=== PATIENT | male | born 1985 | race Caucasian/White ===

== ENCOUNTER 2017-01-24 11:00 | Emergency (ER) | payer BC ==
[2017-01-24] MEDS ORDERED: BENADRYL 50 MG/ML IV ONE (11:26)
[2017-01-24] MEDS ORDERED: Hydromorphone 1 mg/ml Ampule IV ONE (11:26)
[2017-01-24] MEDS ORDERED: Sodium Chloride 0.9% 1000 ML 1,000 ML IV SCH (11:30)
[2017-01-24] MEDS ORDERED: Sodium Chloride 0.9% 1000 ML 1,000 ML ONE (11:32)
[2017-01-24] MEDS ORDERED: Hydromorphone 1 mg/ml Ampule ONE (11:32)
[2017-01-24] MEDS ORDERED: BENADRYL 50 MG/ML ONE (11:32)
--- NOTE | 2017-01-24 11:33 | ERPHSYRPT ---
- History of Present Illness Time Seen by Provider: 01/24/17 11:19 Source: patient, family (friend) Patient Subjective Stated Complaint: pt states he injured right ribs yesterday swimming. pt c/o pain to right ribs. Triage Nursing Assessment: pt pink, warm, dry. lung sounds clear and equal. no deformity noted. Physician History: CC: right rib injury Hx: 31 y/o patient from [place]. He works in a [employer]. Here for vacation. He was swimming last evening and wrestling and was hit in right anterior lower ribs with an elbow. He has rather severe pain in the right lower ribs. Not short of breath. Some upper abd pain. No neck or back pain. No LOC. No other injuries. Severity of Pain-Max: severe Severity of Pain-Current: severe Allergies/Adverse Reactions: acetaminophen [From Excedrin Tension Headache] Allergy (Verified 01/24/17 11:14) bee pollen Allergy (Verified 01/24/17 11:14) caffeine [From Excedrin Tension Headache] Allergy (Verified 01/24/17 11:14) Home Medications: Lisdexamfetamine Dimesylate [Vyvanse] 30 mg PO DAILY 01/24/17 [History] Hx Tetanus, Diphtheria Vaccination/Date Given: Yes (up to date) Hx Influenza Vaccination/Date Given: No Hx Pneumococcal Vaccination/Date Given: No Immunizations Up to Date: Yes - Review of Systems Constitutional: No Symptoms Eyes: No Symptoms Respiratory: No Dyspnea Cardiac: Chest Pain (right ribs) Abdominal/Gastrointestinal: Abdominal Pain (RUQ), No Nausea, No Vomiting Neurological: No Focal Weakness, No Parasthesia All Other Systems: Reviewed and Negative - Past Medical History Pertinent Past Medical History: No - Past Surgical History Past Surgical History: No - Social History Smoking Status: Current some day smoker Exposure to second hand smoke: Yes Drug Use: none 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) Physical Exam - Nursing Vital Signs Nursing Vital Signs: Initial Vital Signs Temperature 98.9 F Temperature Source Oral Pulse Rate 83 Respiratory Rate 16 Blood Pressure [Right Arm] 127/85 Pain Intensity 6 - Stanislav Coma Score Best Eye Response (Stanislav): (4) open spontaneously Best Verbal Response ([place]): (5) oriented Best Motor Response (Stanislav): (6) obeys commands Stanislav Total: 15 - Physical Exam General Appearance: alert Head Injury: no evidence of injury Eye Exam: bilateral eye: PERRL, EOMI Neck Exam: supple, No mid-line tenderness Respiratory/Chest Exam: chest tenderness (right anterior lower ribs, no crepitus , lung sounds intact) Cardiovascular Exam: normal heart sounds, regular rate/rhythm Gastrointestinal Exam: soft, tenderness (RUQ) Back Exam: normal inspection, No vertebral tenderness Extremity Exam: normal inspection, normal range of motion Neurologic Exam: alert, oriented x 3, cooperative, account administrator II-XII nml as tested, sensation nml, No motor deficits Skin Exam: warm, dry, other (sunburned) SpO2 Interpretation: normal SpO2: 98 Oxygen Delivery: Room Air Procedures - Limited Abd FAST Ultrasound Indications: abdominal pain (post injury to right ribs) Right Upper Quadrant Findings: No Free Fluid Left Upper Quadrant Findings: No Free Fluid Pelvis: no free fluid Progress: Limited abdominal ultrasound per ERMD for trauma. No free fluid. No pericardial fluid. Good lung sliding on right and left lungs with no sign of pneumothorax. - Course Nursing assessment & vital signs reviewed: Yes - Radiology Exams cxr X-ray Interpretation: Interpreted by me, No Fracture, No Pneumothorax Ordered Tests: Active Orders 24 hr Category Date Time Status IV Insertion STAT Care 01/24/17 11:26 Active NPO (ED) STAT Care 01/24/17 11:26 Active ABDOMEN AND PELVIS W CONTRAST [CT] Stat Exams 01/24/17 11:27 Taken CHEST 1 VIEW (PORTABLE) Stat Exams 01/24/17 11:27 Taken CBC W DIFF Stat Lab 01/24/17 11:36 Completed CMP Stat Lab 01/24/17 11:36 Completed Medication Summary Generic Name Dose Route Start Last Admin Trade Name Freq PRN Reason Stop Dose Admin Sodium Chloride 1,000 mls @ 100 mls/hr 01/24/17 11:30 01/24/17 11:34 Sodium Chloride 0.9% 1000 Ml IV 02/23/17 11:29 100 mls/hr .Q10H DIPTI Administration Discontinued Medications Generic Name Dose Route Start Last Admin Trade Name Freq PRN Reason Stop Dose Admin Diphenhydramine HCl 25 mg 01/24/17 11:26 01/24/17 11:35 Benadryl 50 Mg/Ml IV 01/24/17 11:27 25 mg STAT ONE Administration Diphenhydramine HCl Confirm 01/24/17 11:32 Benadryl 50 Mg/Ml Administered 01/24/17 11:33 Dose 50 mg .ROUTE .STK-MED ONE Hydromorphone HCl 1 mg 01/24/17 11:26 01/24/17 11:36 Hydromorphone 1 Mg/Ml Ampule IV 01/24/17 11:27 1 mg STAT ONE Administration Hydromorphone HCl Confirm 01/24/17 11:32 Hydromorphone 1 Mg/Ml Ampule Administered 01/24/17 11:33 Dose 1 mg .ROUTE .STK-MED ONE Ketorolac Tromethamine 30 mg 01/24/17 12:59 01/24/17 13:03 Toradol 30 Mg Injection IV 01/24/17 13:00 30 mg STAT ONE Administration Ketorolac Tromethamine Confirm 01/24/17 13:03 Toradol 30 Mg Injection Administered 01/24/17 13:04 Dose 30 mg .ROUTE .STK-MED ONE Lab/Rad Data: Laboratory Result Diagrams 01/24/17 11:36 01/24/17 11:36 Laboratory Results 01/24/17 01/24/17 Range/Units 11:36 11:36 WBC 6.6 (4.0-10.5) K/mm3 RBC 4.75 (4.1-5.6) M/mm3 Hgb 15.4 (12.5-18.0) gm/dl Hct 44.4 (42-50) % MCV 93.5 (78-100) fl MCH 32.4 H (26-32) pg MCHC 34.7 (32-36) g/dl RDW 12.6 (11.5-14.0) % Plt Count 208 (150-450) K/mm3 MPV 9.1 (6-9.5) fl Gran % 67.3 H (36.0-66.0) % Lymphocytes % 19.8 L (24.0-44.0) % Monocytes % 11.8 (0.0-12.0) % Eosinophils % 0.8 (0.00-5.0) % Basophils % 0.3 (0.0-0.4) % Basophils # 0.02 (0-0.4) Sodium 140 (136-145) mEq/L Potassium 3.9 (3.5-5.1) mEq/L Chloride 100 (98-107) mEq/L Carbon Dioxide 26.7 (21-32) mEq/L Anion Gap 17.1 H (5-15) MEQ/L BUN 12 (9-20) mg/dL Creatinine 0.94 (0.55-1.30) mg/dl Estimated GFR > 60 ML/MIN Glucose 133 H (70-110) MG/DL Calcium 9.8 (8.5-10.1) mg/dL Total Bilirubin 1.00 (0.2-1.0) mg/dL AST 24 (15-37) U/L ALT 24 (12-78) U/L Alkaline Phosphatase 77 (46-116) U/L Serum Total Protein 7.9 (6.4-8.2) gm/dL Albumin 4.3 (3.4-5.0) g/dL - Progress Progress Note: 01/24/17 13:08 CT abd/pelvis: john 12:59 PM 01/24/2017: No comps. 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 Remaining abd/pel negative. Pt states he is prior aware of spondylolithesis. Advised back specialist follow up and talked about risks of slippage. He will be treated for rib contusion. Instr given. 01/24/17 13:11 Pt states allergic to exedrin, able to take tylenol or norco. Counseled pt/family regarding: lab results, diagnosis, need for follow-up, rad results - Departure Time of Disposition: 13:09 Departure Disposition: Home Clinical Impression: Contusion of rib on right side Qualifiers: Encounter type: initial encounter Qualified Code(s): S20.211A - Contusion of right front wall of thorax, initial encounter Condition: Stable Critical Care Time: No Referrals: Provider,Unknown [Primary Care Provider] - Instructions: Rib Contusion, Rib Fracture Additional Instructions: No driving today or while taking noroc. Rx norco. Rx motrin. Ice packs off and on. Return for difficulty breathing, abdominal pain, passing blood or concerns. Prescriptions: Hydrocodone Bit/Acetaminophen [[place] 5-325 Tablet] 1 each PO Q6H PRN PRN #15 tablet PRN Reason: Pain Ibuprofen 600 mg PO Q6H PRN PRN #24 tablet PRN Reason: Pain
[2017-01-24 11:45] LABS: BASOPHIL % 0.3 % (0.0-0.4); Eosinophil % 0.8 % (0.00-5.0); Granulocytes % 67.3 % (36.0-66.0); Lymphocytes % 19.8 % (24.0-44.0); Mean Cell Volume 93.5 fl (78-100); Mean Corpuscular Hemoglobin 32.4 pg (26-32); Mean Platelet Volume 9.1 fl (6-9.5); Monocytes % 11.8 % (0.0-12.0); Platelet Count 208 K/mm3 (150-450); Red Blood Count 4.75 M/mm3 (4.1-5.6); Red Cell Distribution Width 12.6 % (11.5-14.0); White Blood Count 6.6 K/mm3 (4.0-10.5)
[2017-01-24 12:25] LABS: ALBUMIN 4.3 g/dL (3.4-5.0); ALKALINE PHOSPHATASE 77 U/L (46-116); ANION GAP 17.1 MEQ/L (5-15); BLOOD UREA NITROGEN 12 mg/dL (9-20); CHLORIDE 100 mEq/L (98-107); Carbon Dioxide 26.7 mEq/L (21-32); Glucose 133 MG/DL (70-110); Potassium 3.9 mEq/L (3.5-5.1); SGOT/AST 24 U/L (15-37); SGPT/ALT 24 U/L (12-78); SODIUM 140 mEq/L (136-145); Total Protein 7.9 gm/dL (6.4-8.2)
[2017-01-24] MEDS ORDERED: TORAdol 30 mg Injection IV ONE (12:59)
[2017-01-24 13:02] VITALS: BP 127/85; PULSE 83
[2017-01-24] MEDS ORDERED: TORAdol 30 mg Injection ONE (13:03)
[2017-01-24 13:11] VITALS: O2SAT 98
--- NOTE | 2017-01-24 20:08 | XRAY ---
Indication: Right upper quadrant/right rib pain following wrestling injury. Comparison: None Portable chest demonstrates normal heart, lungs, and bony thorax.
--- NOTE | 2017-01-24 20:12 | XRAY ---
Indication: Right upper quadrant abdomen/right rib pain following wrestling injury. Multiple contiguous axial images obtained through the abdomen and pelvis using 80 cc Isovue 370 contrast only. Comparison: None Lung bases demonstrates minimal bibasilar dependent atelectasis. Heart is not enlarged. Noncontrasted stomach and bowel loops appear nonobstructed. Normal appendix. No free fluid/air. Remaining liver, gallbladder, pancreas, spleen, adrenal glands, kidneys, ureters, bladder, and aorta appear normal in CT appearance and attenuation. No pathologic retroperitoneal lymphadenopathy. Bone windows reveal bilateral L5 spondylolysis with 15 mm spondylolisthesis. No fracture. Impression: 1. No acute intra-abdominal/pelvic abnormalities. 2. Bilateral L5 spondylolysis with grade 2 spondylolisthesis. CTDI 8.32
== END 2017-01-24 13:33 | disposition home or self-care (01) ==
LOC: ED 11:00
DX: S20.211A Contusion of right front wall of thorax, initial encounter (principal); W22.8XXA Striking against or struck by other objects, initial encounter; Y93.11 Activity, swimming
CPT/HCPCS: 36000; 36415; 71010; 74177; 80053; 85025; 96360; 96361; 96374; 96375; 99284; J1170; J1200; J1885